=== PATIENT | male | born 1995 | race Hispanic/Latino ===

== ENCOUNTER 2020-09-10 21:57 | Emergency (ER) | payer SELFPAY ==
[2020-09-10] MEDS ORDERED: diphenhydrAMINE 25 MG CAP ONE (22:13)
[2020-09-10] MEDS ORDERED: predniSONE 20 MG TAB ONE (22:13)
== END 2020-09-10 22:45 | disposition home or self-care (01) ==
LOC: NAV ERS 21:57
DX: L50.9 Urticaria, unspecified (principal)
CPT/HCPCS: 99282; J7512; Q0163

== ENCOUNTER 2021-06-19 22:47 | Emergency (ER) | payer SELFPAY ==
[2021-06-19] MEDS ORDERED: Mag-Al Plus 1200 MG/1200 MG/120 MG/30 ML UDCUP ONE (23:21)
[2021-06-19] MEDS ORDERED: Ketorolac Tromethamine 30 MG/ML VIAL ONE (23:21)
[2021-06-19] MEDS ORDERED: Lidocaine Viscous Sol 2% 15 ml UD Cup ONE (23:21)
[2021-06-19 23:39] LABS: Clarity Clear (Clear); Leukocyte Negative (Negative); Nitrite Negative (Negative); Protein, Urine (Dipstick) Negative (Neg-Trace); Specific Gravity, Urine 1.026 (1.002-1.036); pH, Urine 5.5 (5.0-9.0)
[2021-06-19 23:40] LABS: Bacteria/HPF None Seen HPF (None Seen); Bilirubin Small (Negative); Blood, Urine Small (Negative); Glucose, Urine (Dipstick) Negative (Negative); Ketone, Urine 80 mg/dL (Negative); RBC/HPF 0-3 HPF (0-3); Squamous Epithelial None Seen HPF (0-3); Urobilinogen 0.2 mg/dL (Less than 2); WBC/HPF None Seen HPF (0-3)
[2021-06-19 23:42] LABS: #Basophils 0.1 thou/uL (0.0-0.2); #Eosinphils 0.1 thou/uL (0.0-0.7); #Lymphocytes 2.3 thou/uL (1.20-3.40); #Monocytes 1.4 thou/uL (0.11-0.59); #Neutrophils 10.8 thou/uL (1.40-6.50); %Basophils 0.7 % (0.0-1.0); %Eosinophils 0.8 % (0.0-10.0); %Lymphocytes 15.4 % (21.0-51.0); %Monocytes 9.4 % (0.0-10.0); %Neutrophils 73.7 % (42.0-75.0); Hemoglobin 15.4 g/dL (14.0-18.0); Mean Corpuscular HGB CONC 31.1 g/dL (32.0-36.0); Mean Corpuscular Hemoglobin 27.2 pg (27.0-31.0); Mean Corpuscular Volume 87.6 fL (78.0-98.0); Mean Platelet Volume 10.9 fL (7.4-10.4); Platelet Count 262 thou/uL (130-400); RBC Distribution Width 12.8 % (11.5-14.5); Red Blood Cell (RBC) Count 5.67 mill/uL (4.70-6.10); White Blood Cell (WBC) Count 14.7 thou/uL (4.8-10.8)
[2021-06-19 23:53] LABS: ALT (SGPT) 54 U/L (8-55); AST (SGOT) 25 U/L (5-34); Albumin 4.5 g/dL (3.5-5.0); Alkaline Phosphatase 68 U/L (40-110); Anion Gap 17 mmol/L (10-20); BUN (Urea Nitrogen) 12 mg/dL (8.9-20.6); Bilirubin, Total 0.9 mg/dL (0.2-1.2); Calc. Creatinine Clearance 0 mL/min (70-130); Calcium 9.4 mg/dL (7.8-10.44); Carbon Dioxide 25 mmol/L (22-29); Chloride 101 mmol/L (98-107); Globulin 3.3 g/dL (2.4-3.5); Glucose 94 mg/dL (70-105); Lipase 20 U/L (8-78); Potassium 3.6 mmol/L (3.5-5.1); Protein, Total 7.8 g/dL (6.0-8.3); Sodium 139 mmol/L (136-145)
[2021-06-20] MEDS ORDERED: Piperacillin/Tazobactam 3.375 GM VIAL ONE (00:33)
[2021-06-20] MEDS ORDERED: Sodium Chloride 0.9% 500 ML ONE (00:33)
[2021-06-20] MEDS ORDERED: Fentanyl 100 MCG/2 ML VIAL ONE (00:33)
[2021-06-20] MEDS ORDERED: Sodium Chloride 0.9% 100 ML ONE (00:34)
== END 2021-06-20 00:47 | disposition short-term general hospital (02) ==
LOC: NAV ERS 22:47
DX: K80.20 Calculus of gallbladder without cholecystitis without obstruction (principal)
CPT/HCPCS: 74176; 80053; 81003; 81015; 83690; 85025; 94760; 96374; 96375; J1885; J2543; J3010; J3490; J7030

== ENCOUNTER 2024-02-12 12:58 | Emergency (ER) | payer SELFPAY ==
[2024-02-12] MEDS ORDERED: Naproxen 500 MG TAB ONE (13:19)
== END 2024-02-12 13:55 | disposition home or self-care (01) ==
LOC: NAV ERS 12:58
DX: J20.8 Acute bronchitis due to other specified organisms (principal); I10 Essential (primary) hypertension
CPT/HCPCS: 87070; 87205; 87428; 99283